=== PATIENT | male | born 1960 | race Two or more races ===

== ENCOUNTER 2019-12-18 18:20 | Emergency (ER) | payer MEDICAID, MEDICARE ==
[~2019-12-18] VITALS: Ht 170.2 cm; Wt 79.4 kg
[2019-12-18] MEDS ORDERED: LORazepam 0.5 MG TAB PO ONE (19:00)
[2019-12-18] MEDS ORDERED: ONDANSETRON HCL 4 MG/2 ML VIAL IV ONE (19:00)
[2019-12-18] MEDS ORDERED: SODIUM CHLORIDE 0.9% 1,000 ML IV ONE (19:00)
[2019-12-18] MEDS ORDERED: MVI in SODIUM CHLORIDE 0.9% 1,010 ML IV ONE (19:07)
[2019-12-18 19:13] LABS: Basophils # (auto) 0.1 10 ^3/uL (0-0.2); Eosinophils # (auto) 0 10 ^3/uL (0-0.8); Lymphocytes # (auto) 1.4 10 ^3/uL (0.4-5.4); Monocytes # (auto) 0.6 10 ^3/uL (0-1.3); Neutrophils # (auto) 7.1 10 ^3/uL (1.6-8.6); Nucleated Red Blood Cells % 0.1 %
[2019-12-18] MEDS: MAGNESIUM SULFATE 1GM/100ML 100 ML IV SCH ×2 (19:15→20:15)
[2019-12-18] MEDS ORDERED: THIAMINE 100mg/ml INJ (200mg/2ml VIAL) IV ONE (19:15)
[2019-12-18 19:17] LABS: Basophils % (auto) 1.1 % (0.0-2.0); Hematocrit 44.9 % (41.0-53.0); Hemoglobin 15.8 g/dL (13.5-17.5); Lymphocytes % (auto) 15.1 % (10.0-50.0); Mean Corpuscular Hgb Conc. 35.3 g/dL (32.0-36.0); Monocytes % (auto) 6.9 % (0.0-12.0); Neutrophils % (auto) 76.9 % (37.0-80.0); Platelet Count (auto) 228 10^3/uL (140-450); Red Cell Distribution Width 12.9 % (11.8-14.3); White Blood Cell 9.3 10^3/uL (4.4-10.8)
[2019-12-18 19:31] LABS: Alanine Aminotransferase 73 U/L (16-61); Albumin 3.2 g/dL (3.4-5.0); Anion Gap 17 (5-15); Blood Alcohol < 3.0 mg/dL (0-5); Blood Urea Nitrogen 16 mg/dL (7-18); Calcium 8.4 mg/dL (8.5-10.1); Carbon Dioxide 18 mmol/L (21-32); Chloride 98 mmol/L (98-107); Glucose 242 mg/dL (74-106); Lipase 639 U/L (73-393); Sodium 133 mmol/L (136-145)
[2019-12-18 19:34] LABS: Alkaline Phosphatase 107 U/L (45-117); Aspartate Aminotransferase 70 U/L (15-37); BUN/Creatinine Ratio 5.9; Bilirubin, Total 1.4 mg/dL (0.2-1.0); GFR African American 31 mL/min; GFR Non-African American 25 mL/min
[2019-12-18 19:52] LABS: Potassium 2.9 mmol/L (3.5-5.1)
[2019-12-18] MEDS ORDERED: POTASSIUM EFFERVESENT TAB 25 MEQ PO ONE (20:30)
[2019-12-19 00:26] VITALS: BP 143/74
[2019-12-19] MEDS ORDERED: FOLIC ACID 1 MG, MULTIPLE VITAMIN 10 ML, MAGNESIUM SULF SDV 50% 8 MEQ, THIAMINE INJ 100... INJ SCH ×5 (12:00)
== END 2019-12-19 00:28 | disposition home or self-care (01) ==
LOC: ER 18:23
DX: F10.239 Alcohol dependence with withdrawal, unspecified (principal); E11.9 Type 2 diabetes mellitus without complications; E87.6 Hypokalemia; K70.30 Alcoholic cirrhosis of liver without ascites; K85.20 Alcohol induced acute pancreatitis without necrosis or infection; F41.9 Anxiety disorder, unspecified; Y90.9 Presence of alcohol in blood, level not specified
CPT/HCPCS: 36415; 80053; 80320; 82962; 83690; 85025; 93005; 96361; 96374; 99284; J7030; J2405